=== PATIENT | female | born 1985 | race Caucasian/White ===

== ENCOUNTER 2021-11-06 10:16 | Emergency (ER) | payer SELFPAY ==
[~2021-11-06] VITALS: Ht 157 cm; Wt 65.0 kg
[~2021-11-06 10:16] MED LIST: ACETAMINOPHEN; ACHD5005 PO; ACHYD1T PO; ACID1TAB PO; AMOX500C2 PO; CEPH500C PO; CIPR500T78 PO; CLIN300C3 PO; DCS100C PO; DIAZ5TAB PO; HYDR-3714 PO; HYDR-3720 PO; HYDR-4226 PO; HYDR118S10 PO; HYDROCODONE; IBP800T PO; LAMO100T69 PO; MORP100C16 PO; MORPHINE 30 MG; Nabumetone; ONDA-42 SL; ONDA8TAB13 PO; OXYC-272 PO; PREG25CA PO; PREN1TAB39 PO; PRM25T PO
--- NOTE | 2021-11-06 11:09 | ED General ---
General Chief Complaint: General Problems/Pain Stated Complaint: BI LAT HAND/ARM NUMBNESS, Nursing Triage Note: PT CO OF BITALTERAL HANDS DONT FEEL RIGHT, MOUTH NUMBNESS, LEGS DONT FEEL RIGHT STARTED ON MONDAY. PT STATES HAS NOT TAKEN B/P MEDS SINCE MAR LAST YEAR Source of Information: Patient Exam Limitations: No Limitations History of Present Illness Date Seen by Provider: Nov 06, 2021 Time Seen by Provider: 10:57 Initial Comments Patient is a 36-year-old female who presents to the emergency department with a chief complaint of having tingling and discomfort in her bilateral arms and hands on of last week 3 days ago. She also complains of a little "mouth numbness". She states her buttocks and proximal thighs also feel like there is something "sticking in them". She denies any numbness to her lower extremities, loss of bowel or bladder function, weakness to her legs. No weakness in her arms. No headache, vision changes. She states that her tongue yesterday felt "numb" and like it would not function correctly. The symptoms wax and wane. She states she has a difficult time describing her symptoms but finally told her mother about them and they instructed her to come to the emergency room. Patient states that she had previous spina bifida surgery many years ago and the sensations in her extremities feel like they did when she had her surgery. It was a lumbar surgery. Patient also has a history of hypertension and is poorly compliant with her medications. She denies chest pain, shortness of breath, nausea or vomiting. No GI or symptoms. She also endorses a significant amount of anxiety. All other review of systems reviewed and negative except as stated. Timing/Duration: 2-3 Days Severity: Mild Associated Systoms: Denies Symptoms Allergies and Home Medications Allergies Coded Allergies: Penicillins (Verified Allergy, Unknown, HAS RECEIVED ANCEF IN THE PAST W/O PROBLEM, 07/31/13) codeine (Unverified Allergy, Unknown, RASH, 11/24/14) Patient Home Medication List Home Medication List Reviewed: Yes Diazepam (Valium) 5 Mg Tablet, 5 MG PO HS, (Reported) Entered as Reported by: SAMANTHA GLASER on 03/20/15 1349 Hydrocodone Bit/Acetaminophen (Hydrocodone-Apap 5-325 Tab) 1 Tab Tablet, 1 TAB PO Q4H Prescribed by: JOSH STEWART on 11/27/14 1240 Hydrocodone Bit/Acetaminophen (Lortab 5 Mg Tablet) 1 Each Tablet, 1 EACH PO Q6H PRN for PAIN Prescribed by: ED CAMARGO on 06/01/15 1849 Hydrocodone/Acetaminophen (Hydrocodone/Acetaminophen 5 MG/325 MG TAB) 1 Each Tablet, 1 EACH PO Q4H PRN for PAIN Prescribed by: MEREDITH HITCHCOCK on 03/20/15 1635 Review of Systems Review of Systems Constitutional: see HPI EENTM: no symptoms reported Respiratory: no symptoms reported Cardiovascular: no symptoms reported Gastrointestinal: no symptoms reported Genitourinary: no symptoms reported Musculoskeletal: no symptoms reported Skin: no symptoms reported Psychiatric/Neurological: Paresthesia All Other Systems Reviewed Negative Unless Noted: Yes Past Adoutlj-Phpmwk-Oorsxs Hx Patient Social History Tobacco Use?: No Substance use?: No Alcohol Use?: Yes Alcohol type: Wine Alcohol Frequency: Once in a while Past Medical History Surgery/Hospitalization HX: HYSTERECTOMY Gallbladder, Hysterectomy Hypertension Reproductive Disorders: No 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 0.0oz. [id number]; 26.00 BMI Method:Stated General Appearance: No Apparent Distress, WD/WN, Anxious Eyes: Bilateral Eye Normal Inspection, Bilateral Eye PERRL, Bilateral Eye EOMI HEENT: PERRL/EOMI Neck: Normal Inspection, Non Tender, Supple Respiratory: Lungs Clear, Normal Breath Sounds, No Accessory Muscle Use, No Respiratory Distress Cardiovascular: Regular Rate, Rhythm, Normal Peripheral Pulses Gastrointestinal: Normal Bowel Sounds, Non Tender, Soft Back: Normal Inspection Extremity: Normal Inspection, Normal Range of Motion, Non Tender, No Calf Tenderness Neurologic/Psychiatric: Alert, Oriented x3, No Motor/Sensory Deficits, Normal 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/Affect, 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 Norm as Tested; No Abnormal 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, No Aphasia, No Disoriented, No EOM Palsy, No Facial Droop, No Motor Weakness, No Sensory Deficit Skin: Normal Color, Warm/Dry Progress/Results/Core Measures Suspected Sepsis SIRS Temperature: Pulse: 91 Respiratory Rate: 18 Laboratory Tests 11/06/21 10:37: White Blood Count 7.6 Blood Pressure 175 /100 Mean: 125 Laboratory Tests 11/06/21 10:37: Creatinine 0.72, Platelet Count 239, Total Bilirubin 0.6 Results/Orders Lab Results Laboratory Tests Test 11/06/21 10:37 Range/Units White Blood Count 7.6 4.3-11.0 10^3/uL Red Blood Count 4.05 3.80-5.11 10^6/uL Hemoglobin 13.4 11.5-16.0 g/dL Hematocrit 40 35-52 % Mean Corpuscular Volume 98 80-99 fL Mean Corpuscular Hemoglobin 33 25-34 pg Mean Corpuscular Hemoglobin Concent 34 32-36 g/dL Red Cell Distribution Width 12.4 10.0-14.5 % Platelet Count 239 130-400 10^3/uL Mean Platelet Volume 12.2 9.0-12.2 fL Immature Granulocyte % (Auto) 0 % Neutrophils (%) (Auto) 66 42-75 % Lymphocytes (%) (Auto) 27 12-44 % Monocytes (%) (Auto) 7 0-12 % Eosinophils (%) (Auto) 0 0-10 % Basophils (%) (Auto) 1 0-10 % Neutrophils # (Auto) 5.0 1.8-7.8 10^3/uL Lymphocytes # (Auto) 2.0 1.0-4.0 10^3/uL Monocytes # (Auto) 0.5 0.0-1.0 10^3/uL Eosinophils # (Auto) 0.0 0.0-0.3 10^3/uL Basophils # (Auto) 0.0 0.0-0.1 10^3/uL Immature Granulocyte # (Auto) 0.0 0.0-0.1 10^3/uL Sodium Level 141 135-145 MMOL/L Potassium Level 3.4 L 3.6-5.0 MMOL/L Chloride Level 105 98-107 MMOL/L Carbon Dioxide Level 18 L 21-32 MMOL/L Anion Gap 18 H 5-14 MMOL/L Blood Urea Nitrogen 7 7-18 MG/DL Creatinine 0.72 0.60-1.30 MG/DL Estimat Glomerular Filtration Rate 110 BUN/Creatinine Ratio 10 Glucose Level 131 H 70-105 MG/DL Calcium Level 8.9 8.5-10.1 MG/DL Corrected Calcium 8.8 8.5-10.1 MG/DL Total Bilirubin 0.6 0.1-1.0 MG/DL Aspartate Amino Transf (AST/SGOT) 24 5-34 U/L Alanine Aminotransferase (ALT/SGPT) 17 0-55 U/L Alkaline Phosphatase 54 40-136 U/L Total Protein 6.9 6.4-8.2 GM/DL Albumin 4.1 3.2-4.5 GM/DL My Orders Orders - LEENA RUEDA MD Ed Iv/Invasive Line Start (11/06/21 11:09) Cbc With Automated Diff (11/06/21 11:09) Comprehensive Metabolic Panel (11/06/21 11:09) Vital Signs/I&O 11/06/21 10:23 Temp 35.9 Pulse 91 Resp 18 B/P (MAP) 175/100 (125) Pulse Ox 97 Capillary Refill : Less Than 3 Seconds Blood Pressure Mean: 125 Departure Impression Primary Impression: Paresthesia Additional Impressions: High blood pressure Qualified Codes: I10 - Essential (primary) hypertension Anxiety Disposition: 01 HOME, SELF-CARE Condition: Stable Departure-Patient Inst. Decision time for Depature: 11:55 Referrals: [facility] [place] (PCP/Family) Primary Care Physician Patient Instructions: LOCAL PHYSICIAN LIST, Paresthesia (DC) Add. Discharge Instructions: I am starting you on lisinopril 20 mg tablets take 1 daily. You will need to follow-up with either [facility] or the provider of your choice to continue this medication. If you have any worsening symptoms of numbness, tingling, weakness or any other emergent concerning symptoms please come back to the emergency room for reevaluation. Scripts Lisinopril (Lisinopril) 20 Mg Tablet 20 MG PO DAILY, #30 TAB Prov: LEENA RUEDA MD 11/06/21 Copy Copies To 1: MARY CARMEN KATHRYN M MD Nov 06, 2021 11:09
[2021-11-06 11:16] LABS: ALBUMIN 4.1 GM/DL (3.2-4.5); POTASSIUM 3.4 MMOL/L (3.6-5.0)
[2021-11-06 11:17] LABS: CALCIUM 8.9 MG/DL (8.5-10.1)
[2021-11-06 11:19] LABS: TOTAL PROTEIN 6.9 GM/DL (6.4-8.2)
[2021-11-06 11:20] LABS: BILIRUBIN,TOTAL 0.6 MG/DL (0.1-1.0)
[2021-11-06 11:22] LABS: CREATININE SERUM 0.72 MG/DL (0.60-1.30)
[2021-11-06 11:23] LABS: BASOPHILS % (AUTO) 1 % (0-10); EOSINOPHILS % (AUTO) 0 % (0-10); HEMATOCRIT 40 % (35-52); HEMOGLOBIN 13.4 g/dL (11.5-16.0); LYMPHOCYTES % (AUTO) 27 % (12-44); MEAN CORPUSCULAR HEMOGLOBIN 33 pg (25-34); MEAN CORPUSCULAR HGB CONC 34 g/dL (32-36); MEAN CORPUSCULAR VOLUME 98 fL (80-99); MEAN PLATELET VOLUME 12.2 fL (9.0-12.2); MONOCYTES # (AUTO) 0.5 10^3/uL (0.0-1.0); MONOCYTES % (AUTO) 7 % (0-12); NEUTROPHILS % (AUTO) 66 % (42-75); PLATELET COUNT 239 10^3/uL (130-400); WHITE BLOOD COUNT 7.6 10^3/uL (4.3-11.0)
[2021-11-06] MEDS ORDERED: LISI20TA26 PO (12:10)
[2021-11-06 12:37] VITALS: BP 166/131
== END 2021-11-06 12:29 | disposition home or self-care (01) ==
LOC: EDUNIT# 10:16 → ER 10:18
DX: I10 Essential (primary) hypertension (principal); F41.9 Anxiety disorder, unspecified; R20.2 Paresthesia of skin
CPT/HCPCS: 36415; 80053; 85025